=== PATIENT | female | born 1945 | race Caucasian/White ===

== ENCOUNTER 2020-09-20 12:28 | Emergency (ER) | payer OTHER, MEDICARE ==
[2020-09-20] MEDS ORDERED: ONDANSETRON *ODT* 4 MG TABLET SL ONE (12:35)
[2020-09-20] MEDS ORDERED: ACETAMINOPHEN 500 MG TABLET (FP) PO ONE (12:35)
[2020-09-20] MEDS ORDERED: ACETAMINOPHEN 500 MG TABLET (FP) ONE (12:51)
[2020-09-20] MEDS ORDERED: ONDANSETRON *ODT* 4 MG TABLET ONE (12:51)
[2020-09-20 13:03] VITALS: BP 153/76; PULSE 68; TEMP 97.5; BMI 21.7
== END 2020-09-20 14:41 | disposition home or self-care (01) ==
LOC: FER 12:28
PROC: 0HQ0XZZ Repair Scalp Skin, External Approach (ICD-10-PCS; principal; 2020-09-20)
DX: S09.90XA Unspecified injury of head, initial encounter (principal); S06.0X0A Concussion without loss of consciousness, initial encounter; S01.01XA Laceration without foreign body of scalp, initial encounter
CPT/HCPCS: 70450-TC; 72125-TC; 93005; 99285-25

== ENCOUNTER 2020-09-27 12:28 | Emergency (ER) | payer OTHER, MEDICARE ==
[2020-09-27 12:32] VITALS: BP 131/66; PULSE 68; TEMP 98.1; BMI 21.7
== END 2020-09-27 13:10 | disposition home or self-care (01) ==
LOC: FER 12:28
DX: Z48.02 Encounter for removal of sutures (principal)
CPT/HCPCS: 99281-25